=== PATIENT | male | born 2000 | race Caucasian/White ===

== ENCOUNTER 2024-09-09 11:08 | Outpatient (CLI) | payer BC, SELFPAY | END 2024-09-09 11:09 | disposition home or self-care (01) | LOC: LKVREF 11:08 | PROVIDERS: PCP Family Medicine; Visit Provider Emergency Medicine | DX: R00.2 Palpitations (principal) | CPT/HCPCS: 84443 ==

== ENCOUNTER 2024-10-21 08:47 | Outpatient (CLI) | payer BC, SELFPAY | END 2024-10-21 08:48 | disposition home or self-care (01) | PROVIDERS: PCP Emergency Medicine; Visit Provider Emergency Medicine | DX: F41.9 Anxiety disorder, unspecified (principal); Z13.6 Encounter for screening for cardiovascular disorders; Z11.3 Encounter for screening for infections with a predominantly sexual mode of transmission; Z11.59 Encounter for screening for other viral diseases | CPT/HCPCS: 80061; 86592; 86703; 86706; 86803 ==

== ENCOUNTER 2024-11-14 08:51 | Outpatient (CLI) | payer BC, SELFPAY | END 2024-11-14 08:52 | disposition home or self-care (01) | LOC: NFLDREF 11-23 15:46 | PROVIDERS: PCP Emergency Medicine; Referring Provider Emergency Medicine; Visit Provider Emergency Medicine | DX: Z11.3 Encounter for screening for infections with a predominantly sexual mode of transmission (principal) | CPT/HCPCS: 87340; 87491; 87591 ==